=== PATIENT | male | born 2000 | race Caucasian/White ===

== ENCOUNTER 2019-07-03 19:02 | Emergency (ER) | payer OTHER ==
[~2019-07-03] VITALS: Ht 167.6 cm; Wt 88.5 kg
[2019-07-03] MEDS ORDERED: IBUPROFEN 600600 M1 PO (20:18)
[2019-07-03 20:46] VITALS: BP 124/83
== END 2019-07-03 20:47 | disposition home or self-care (01) ==
LOC: ER 19:02
DX: S80.12XA Contusion of left lower leg, initial encounter (principal); S80.212A Abrasion, left knee, initial encounter; V89.2XXA Person injured in unspecified motor-vehicle accident, traffic, initial encounter; Y92.89 Other specified places as the place of occurrence of the external cause; Y93.89 Activity, other specified; Y99.8 Other external cause status